=== PATIENT | female | born 1955 | race Caucasian/White ===

== ENCOUNTER 2018-05-14 10:46 | Day surgery (SDC) | payer OTHER ==
[~2018-05-14 10:46] MED LIST: LIDOCAINE 2% 5 ML SDV ONE; PROPOFOL 200 MG/20 ML VIAL ONE; PROPOFOL/EMULSION 500 MG/50 ML BOTTLE IV ONE; fentaNYL 100 MCG/2 ML INJ ONE
[2018-05-14] MEDS ORDERED: BUPIVACAINE/EPI 0.25% 30 ML SDV ONE (10:54)
[2018-05-14] MEDS ORDERED: DEXAMETHASONE 4 MG/ML VIAL ONE (10:54)
[2018-05-14] MEDS ORDERED: BUPIVACAINE 0.25% 10 ML SDV ONE (10:54)
[2018-05-14] MEDS ORDERED: ceFAZolin 2 GM/DEXTROSE 100 ML IV ONE (11:05)
[2018-05-14] MEDS ORDERED: LIDOCAINE 1% 2 ML INJ ID PRN (11:10)
[2018-05-14] MEDS ORDERED: LR 1,000 ML IV ONE (11:10)
--- NOTE | 2018-05-14 11:10 | PDHPUP ---
History & Physical Update H&P update statement: This history and physical update is based on an assessment of the patient which was completed after admission or registration (within 24 hours), but prior to the surgery/procedure. H&P update: H&P reviewed & patient examined, no change in patient's condition since H&P completed
[2018-05-14] MEDS ORDERED: LIDOCAINE 2% 5 ML SDV ONE (12:13)
--- NOTE | 2018-05-14 12:43 | POSTOPPROG ---
Post Op Note Date of Operation: 05/14/18 Surgeon: Joaquin Smith Biology Specimen Technician: none Anesthesiologist: none Anesthesia: Local (Specify) (20cc 9/1 .25% marcaine plain and with epi) Pre-op Diagnosis: peroneal tendinitis and plantar fasciitis left Post-op Diagnosis: same Indication: pain Procedure: percutaneous tenotomy and fasciotomy left Findings: none Inf/Abcess present in the surg proc area at time of surgery?: No Depth: Deep Incisional (Fascial) EBL: Minimal Total fluids administered: 6 cc platelet rich plasma Complications: none Drains: Other (none)
[2018-05-14 13:02] VITALS: BP 163/95
--- NOTE | 2018-05-15 07:26 | GOP ---
DATE OF OPERATION: 05/14/2018 SURGEON: Joaquin Smith DPM TEAM GUIDE: None. ANESTHESIA: Local. PREOPERATIVE DIAGNOSIS: 1. Plantar fasciitis and fibromas, left. 2. Insertional peroneal brevis tendinosis, left. POSTOPERATIVE DIAGNOSIS: 1. Plantar fasciitis and fibromas, left. 2. Insertional peroneal brevis tendinosis, left. PROCEDURE PERFORMED: 1. Percutaneous plantar fasciotomy, left. 2. Percutaneous tenotomy, left peroneal brevis tendon. 3. Platelet-rich plasma injection, left plantar fascia. 4. Platelet-rich plasma injection, left peroneal brevis tendon complex. FINDINGS: SPECIMENS: None. ESTIMATED BLOOD LOSS: Minimal. DESCRIPTION OF PROCEDURE: Patient presented to [facility] and was cleared for the inte nded procedure. Patient was taken to the operating room, placed on the table in supine position. An esthesia was obtained by local infiltration of both surgical sites. Following this, prep, scrub, and drape in the usual sterile fashion were performed. Following exsanguination by elevation and Esmarc h bandage, pneumatic ankle tourniquet was inflated to 250 mmHg. At this time, attention was directed to the lateral aspect of the left foot where utilizing ultrasoun d, the peroneal brevis tendon was identified down to its insertion at the base of the 5th metatarsal. A vertical stab incision was made with a 15 blade along the course of the tendon before the inserti on site. The TenJet microtenotomy was then placed into the incision site and under ultrasound visual ization, carried down to the portion of the insertion of the tendon that was showing hypo-intense tis emily. The percutaneous tenotomy was performed back to healthy tissue. Upon completion of this, the i nstrumentation was removed and the area was closed with 5-0 nylon. Attention was then redirected to the plantar medial arch area where in the mid arch, there were noted to be 2 painful areas associated with a plantar fibroma. Again vertical stab incisions were made over both of these areas, and again under ultrasound guidance, the TenJet micro fasciotomy instrumentation was placed into the site. Un nahun direct visualization, the hypoechoic tissue was again removed before all instrumentation was agai n removed from the incisions. Upon completion of this, these incisions were also closed with 5-0 nyl on. Having performed this, the patient had 6 cc of previously prepared platelet-rich plasma of which I injected 2 cc into each of the 3 surgical spots. Upon completion of this, the areas were dressed with Betadine-soaked Adaptics, 4 x 4's, Radha, and Coban. The patient was taken to recovery room, vital signs stable, vascular supply intact digits 1 through 5 bilaterally after the pneumatic ankle tourniquet had been released for a total tourniquet time of 36 minutes. HEMOSTASIS: PAT at 250 mmHg by 36 minutes. MATERIALS: 6 cc platelet-rich plasma. INJECTABLES: 20 cc, 9:1 ratio 0.25% Marcaine plain, 0.25% Marcaine with epinephrine preoperatively. COMPLICATIONS: None. /[id number]/MODL
== END 2018-05-14 13:13 | disposition home or self-care (01) ==
LOC: FSGY 10:46
PROVIDERS: ATTEND Podiatrist Primary Podiatric Medicine
PROC: 0L8W3ZZ Division of Left Foot Tendon, Percutaneous Approach (ICD-10-PCS; principal; 2018-05-14 11:30)
PROC: 0J8R3ZZ Division of Left Foot Subcutaneous Tissue and Fascia, Percutaneous Approach (ICD-10-PCS; principal; 2018-05-14 11:30)
DX: M72.2 Plantar fascial fibromatosis (principal); M77.9 Enthesopathy, unspecified
CPT/HCPCS: 0232T; 28008; 28010; J0690; J1100; J2704; J3010